=== PATIENT | male | born 1960 | race African-American/Black ===

== ENCOUNTER 2019-11-12 12:58 | Inpatient (IN) | payer OTHER ==
[~2019-11-12] VITALS: Ht 175.3 cm; Wt 90.7 kg
[2019-11-12] MEDS ORDERED: ACETAMINOPHEN 650MG SUPP PR STA (13:20)
[2019-11-12] MEDS ORDERED: LEVOFLOXACIN 500MG PREMIX 100 ML IV ONE (13:30)
[2019-11-12] MEDS ORDERED: MORPHINE SULFATE 4 MG/ML CPJ (NOT FOR IM USE) IV STA (13:32)
[2019-11-12] MEDS ORDERED: ONDANSETRON HCL 4MG/2ML INJ IV STA (13:32)
[2019-11-12 14:05] LABS: HEMATOCRIT. 30.5 % (42.0-52.0); HEMOGLOBIN. 10.1 g/dL (14.0-18.0); MEAN CORPUSCULAR HEMOGLOBIN 28.5 pg (28.0-32.0); MEAN CORPUSCULAR VOLUME 85.8 fL (80.0-94.0); MEAN PLATELET VOLUME 8.7 fl (7.4-10.4); PLATELET 305 x1000/uL (130-400); RED BLOOD CELL COUNT 3.55 mill/uL (4.7-6.1); RED CELL DISTRIBUTION WIDTH 14.7 % (11.6-14.6)
[2019-11-12 14:13] LABS: CHLORIDE 108 mEq/L (98-107)
[2019-11-12 14:20] LABS: CREATINE KINASE 73 IU/L (39-308)
[2019-11-12 14:22] LABS: D-DIMER 3.1 mg/L FEU (<0.50); INR 1.2
[2019-11-12 14:30] LABS: PLATELET ESTIMATE NORMAL
[2019-11-12 14:34] LABS: CLARITY URINE CLEAR (CLEAR); COLOR URINE YELLOW (YELLOW); KETONES URINE NEGATIVE (NEGATIVE); LEUKOCYTE ESTERASE URINE NEGATIVE (NEGATIVE); NITRITE URINE NEGATIVE (NEGATIVE); OCCULT BLOOD URINE NEGATIVE (NEGATIVE); PROTEIN URINE NEGATIVE (NEGATIVE); SPECIFIC GRAVITY URINE 1.004 (1.005-1.030); UROBILINOGEN URINE 0.2 E.U./dL (0.2-1.0)
[2019-11-12] MEDS ORDERED: ACETAMINOPHEN 325MG TABLET PO PRN (16:30)
[2019-11-12] MEDS ORDERED: PIPERACILLIN/TAZ 3.375G PREMIX 50 ML IV NR (18:26)
[2019-11-12] MEDS: SODIUM CHLORIDE 0.9% 1,000 ML IV SCH (19:04)
[2019-11-13] MEDS ORDERED: PIPERACILLIN/TAZOBACTAM 3.375 G in DEXT 5% WATER 100 ML IV SCH ×2
[2019-11-13] MEDS: ONDANSETRON HCL 4MG/2ML INJ IV PRN (01:29)
[2019-11-13] MEDS: ENOXAPARIN 100MG/ML SYR SUBCUT SCH ×2 (01:29→16:00)
[2019-11-13 02:18] VITALS: BP 174/106
[2019-11-13 04:00] VITALS: BP 152/96
[2019-11-13] MEDS: PIPERACILLIN/TAZOBACTAM 2.25 G in DEXTROSE 5% WATER 50 ML IV SCH ×4 (04:01→22:24)
[2019-11-13] MEDS: HYDROCODONE/ACETAMINOPHEN 10/325MG TABLET PO PRN ×2 (04:02→08:50)
[2019-11-13 07:24] LABS: HEMATOCRIT. 32.6 % (42.0-52.0); HEMOGLOBIN. 10.8 g/dL (14.0-18.0); MEAN CORPUSCULAR HEMOGLOBIN 29.1 pg (28.0-32.0); MEAN CORPUSCULAR VOLUME 88.2 fL (80.0-94.0); MEAN PLATELET VOLUME 8.6 fl (7.4-10.4); PLATELET 286 x1000/uL (130-400); RED CELL DISTRIBUTION WIDTH 14.6 % (11.6-14.6)
[2019-11-13 08:30] VITALS: BP 158/86
[2019-11-13] MEDS: BICALUTAMIDE 50 MG TABLET PO SCH (08:38)
[2019-11-13] MEDS: TAMSULOSIN HCL 0.4MG SR CAPSULE PO SCH (08:39)
[2019-11-13 11:12] LABS: BG BASE EXCESS -5.7 mmol/L (-2.0-2.0); BG CARBOXYHEMOGLOBIN 0.3 % (0.5-1.5); BG DEOXYHEMOGLOBIN 3.4 % (0.0-5.0); BG FRACTION INSPIRED OXYGEN 21; BG HCO3 ACT 18.5 mmol/L (22.0-26.0); BG OXYGEN SATURATION 96.6 % (92.0-98.5); BG OXYHEMOGLOBIN 96.3 % (94.0-97.0); BG PCO2 32.3 mmHg (35.0-45.0); BG PH 7.377 (7.350-7.450); BG PO2 88.4 mmHg (75.0-100.0); BG SAMPLE SITE RIGHT RADIAL; BG TOTAL HEMOGLOBIN 11.2 g/dL (12.0-18.0); BG VENT MODE ROOM AIR
[2019-11-13] MEDS: AMLODIPINE 5MG TABLET PO SCH ×2 (11:57→22:24)
[2019-11-13] MEDS: CITRIC ACID/SODIUM CITRATE SOLN 30ML UDC PO SCH ×2 (11:57→17:57)
[2019-11-13 12:00] VITALS: BP 123/75
[2019-11-13 15:56] LABS: PLATELET ESTIMATE NORMAL
[2019-11-13 16:15] VITALS: BP 122/66
[2019-11-13] MEDS: SODIUM CHLORIDE 0.9% 1,000 ML IV SCH (17:58)
[2019-11-13 18:50] LABS: SODIUM URINE RANDOM 48 mEq/L
[2019-11-13 20:00] VITALS: BP 121/67
[2019-11-14] VITALS (18 sets, daily range): BP systolic 111–192; BP diastolic 68–106
[2019-11-14] MEDS: HYDROCODONE/ACETAMINOPHEN 10/325MG TABLET PO PRN ×3 (00:30→19:06)
[2019-11-14] MEDS: PIPERACILLIN/TAZOBACTAM 2.25 G in DEXTROSE 5% WATER 50 ML IV SCH ×4 (03:28→21:03)
[2019-11-14] MEDS: SODIUM CHLORIDE 0.9% 1,000 ML IV SCH (08:31)
[2019-11-14] MEDS: CITRIC ACID/SODIUM CITRATE SOLN 30ML UDC PO SCH ×2 (09:00→16:07)
[2019-11-14] MEDS ORDERED: FENTANYL CITRATE/PF 50MCG/ML 2ML VIAL ONE (10:44)
[2019-11-14] MEDS ORDERED: FENTANYL CITRATE/PF 50MCG/ML 2ML VIAL IV NR (10:44)
[2019-11-14] MEDS ORDERED: LIDOCAINE HCL 1% 20ML VIAL (Pyxis) INJ ONE (10:47)
[2019-11-14] MEDS ORDERED: SODIUM BICARBONATE 4% (2.4MEQ) 5ML VIAL IV ONE (10:47)
[2019-11-14] MEDS ORDERED: IOHEXOL-300 50 ML BOTTLE IV ONE (11:19)
[2019-11-14 11:26] LABS: HEMATOCRIT. 31.5 % (42.0-52.0); HEMOGLOBIN. 10.5 g/dL (14.0-18.0); MEAN CORPUSCULAR HEMOGLOBIN 28.5 pg (28.0-32.0); MEAN CORPUSCULAR VOLUME 85.3 fL (80.0-94.0); MEAN PLATELET VOLUME 8.6 fl (7.4-10.4); PLATELET 329 x1000/uL (130-400); RED BLOOD CELL COUNT 3.69 mill/uL (4.7-6.1); RED CELL DISTRIBUTION WIDTH 14.6 % (11.6-14.6)
[2019-11-14] MEDS ORDERED: MIDAZOLAM HCL 2 MG/2 ML VIAL ONE (11:34)
[2019-11-14 12:36] LABS: PLATELET ESTIMATE NORMAL
[2019-11-14 12:42] LABS: PROSTRATE SPECIFIC AG TOTAL 552.38 ng/mL (0.0-4.0)
[2019-11-14] MEDS: TAMSULOSIN HCL 0.4MG SR CAPSULE PO SCH (13:00)
[2019-11-14] MEDS: AMLODIPINE 5MG TABLET PO SCH ×2 (13:00→21:03)
[2019-11-14] MEDS: ONDANSETRON HCL 4MG/2ML INJ IV PRN (13:00)
[2019-11-14] MEDS: BICALUTAMIDE 50 MG TABLET PO SCH (13:01)
[2019-11-14] MEDS ORDERED: HYDRALAZINE HCL 50MG TABLET PO SCH (14:15)
[2019-11-14] MEDS ORDERED: MORPHINE SULFATE 4 MG/ML CPJ (NOT FOR IM USE) IV PRN (16:00)
[2019-11-14] MEDS ORDERED: LACTULOSE 20G/30ML UDC PO PRN (16:00)
[2019-11-14] MEDS: HYDROMORPHONE HCL/PF 2MG/ML CPJ IV PRN ×2 (17:30→21:37)
[2019-11-14] MEDS: HYDRALAZINE HCL 50MG TABLET PO SCH (21:03)
[2019-11-15] VITALS: BP 155/85
[2019-11-15] MEDS: HYDROCODONE/ACETAMINOPHEN 10/325MG TABLET PO PRN ×2 (00:31→06:34)
[2019-11-15] MEDS: PIPERACILLIN/TAZOBACTAM 2.25 G in DEXTROSE 5% WATER 50 ML IV SCH ×4 (03:07→22:51)
[2019-11-15] MEDS: HYDROMORPHONE HCL/PF 2MG/ML CPJ IV PRN ×2 (03:19→09:36)
[2019-11-15 04:00] VITALS: BP 116/69
[2019-11-15] MEDS: SODIUM CHLORIDE 0.9% 1,000 ML IV SCH (06:34)
[2019-11-15 06:41] LABS: HEMATOCRIT. 34.3 % (42.0-52.0); HEMOGLOBIN. 11.2 g/dL (14.0-18.0); MEAN CORPUSCULAR HEMOGLOBIN 27.9 pg (28.0-32.0); MEAN CORPUSCULAR VOLUME 85.4 fL (80.0-94.0); MEAN PLATELET VOLUME 8.4 fl (7.4-10.4); PLATELET 375 x1000/uL (130-400); RED BLOOD CELL COUNT 4.02 mill/uL (4.7-6.1); RED CELL DISTRIBUTION WIDTH 14.6 % (11.6-14.6)
[2019-11-15 07:00] LABS: PHOSPHORUS 3.3 mg/dL (2.5-4.9)
[2019-11-15 08:00] VITALS: BP 122/81
[2019-11-15 08:58] LABS: NUCLEATED RED BLOOD CELLS 1 /100 WBC; PLATELET ESTIMATE NORMAL
[2019-11-15] MEDS: HYDRALAZINE HCL 50MG TABLET PO SCH ×2 (09:00→22:53)
[2019-11-15] MEDS: AMLODIPINE 5MG TABLET PO SCH ×2 (09:00→22:51)
[2019-11-15] MEDS: BICALUTAMIDE 50 MG TABLET PO SCH (09:00)
[2019-11-15] MEDS: TAMSULOSIN HCL 0.4MG SR CAPSULE PO SCH (09:00)
[2019-11-15] MEDS: CITRIC ACID/SODIUM CITRATE SOLN 30ML UDC PO SCH ×2 (09:00→16:21)
[2019-11-15 12:36] VITALS: BP 124/85
[2019-11-15 13:25] LABS: COVID-19 PCR RNA NOT DETECTED
[2019-11-15 13:26] LABS: COVID-19 PCR RNA NOT DETECTED
[2019-11-15] MEDS: ENOXAPARIN 100MG/ML SYR SUBCUT SCH ×2 (16:21→16:29)
[2019-11-15 16:24] VITALS: BP 131/87
[2019-11-15] MEDS: ONDANSETRON HCL 4MG/2ML INJ IV PRN ×2 (17:45→22:58)
[2019-11-15 20:00] VITALS: BP 120/73
[2019-11-15] MEDS: MORPHINE SULFATE 15MG TABLET SR PO SCH (22:52)
[2019-11-16] VITALS: BP 135/87
[2019-11-16] MEDS: PIPERACILLIN/TAZOBACTAM 2.25 G in DEXTROSE 5% WATER 50 ML IV SCH ×4 (02:33→21:41)
[2019-11-16] MEDS: HYDROMORPHONE HCL/PF 2MG/ML CPJ IV PRN ×2 (02:34→16:03)
[2019-11-16] MEDS: SODIUM CHLORIDE 0.9% 1,000 ML IV SCH (02:35)
[2019-11-16 04:00] VITALS: BP 126/72
[2019-11-16 08:00] VITALS: BP 134/87
[2019-11-16] MEDS: ENOXAPARIN 30MG/0.3ML SYR SUBCUT SCH ×2 (09:00→10:03)
[2019-11-16] MEDS: HYDRALAZINE HCL 50MG TABLET PO SCH ×2 (10:02→21:45)
[2019-11-16] MEDS: CITRIC ACID/SODIUM CITRATE SOLN 30ML UDC PO SCH ×2 (10:02→17:37)
[2019-11-16] MEDS: MORPHINE SULFATE 15MG TABLET SR PO SCH ×2 (10:02→21:44)
[2019-11-16] MEDS: TAMSULOSIN HCL 0.4MG SR CAPSULE PO SCH (10:02)
[2019-11-16] MEDS: AMLODIPINE 5MG TABLET PO SCH ×2 (10:02→21:45)
[2019-11-16 11:00] LABS: BASOPHILS % 0.3 % (0.0-2.0); HEMATOCRIT. 33.6 % (42.0-52.0); HEMOGLOBIN. 11.1 g/dL (14.0-18.0); LYMPHOCYTES % 9.5 % (20.0-50.0); MEAN CORPUSCULAR VOLUME 84.9 fL (80.0-94.0); MEAN PLATELET VOLUME 8.7 fl (7.4-10.4); MONOCYTES % 9.9 % (2.0-8.0); NEUTROPHILS % 80.3 % (40.0-76.0); PLATELET 419 x1000/uL (130-400); RED BLOOD CELL COUNT 3.96 mill/uL (4.7-6.1)
[2019-11-16 11:25] LABS: PHOSPHORUS 2.7 mg/dL (2.5-4.9)
[2019-11-16 12:00] VITALS: BP 146/68
[2019-11-16] MEDS ORDERED: CHLORPROMAZINE HCL 25 MG TABLET PO NR (14:45)
[2019-11-16] MEDS: ONDANSETRON HCL 4MG/2ML INJ IV PRN (15:47)
[2019-11-16 16:00] VITALS: BP 112/66
[2019-11-16 20:00] VITALS: BP 155/83
[2019-11-17] VITALS: BP 148/82
[2019-11-17 04:00] VITALS: BP 111/53
[2019-11-17] MEDS: SODIUM CHLORIDE 0.9% 1,000 ML IV SCH ×2 (05:32→18:55)
[2019-11-17] MEDS: PIPERACILLIN/TAZOBACTAM 2.25 G in DEXTROSE 5% WATER 50 ML IV SCH ×4 (05:32→20:57)
[2019-11-17 06:22] LABS: BASOPHILS % 0.7 % (0.0-2.0); EOSINOPHILS % 0.4 % (0.0-5.0); HEMATOCRIT. 28.7 % (42.0-52.0); HEMOGLOBIN. 9.7 g/dL (14.0-18.0); LYMPHOCYTES % 11.7 % (20.0-50.0); MEAN CORPUSCULAR HEMOGLOBIN 28.6 pg (28.0-32.0); MEAN CORPUSCULAR VOLUME 84.6 fL (80.0-94.0); MEAN PLATELET VOLUME 8.7 fl (7.4-10.4); MONOCYTES % 14.1 % (2.0-8.0); NEUTROPHILS % 73.1 % (40.0-76.0); PLATELET 351 x1000/uL (130-400); RED BLOOD CELL COUNT 3.39 mill/uL (4.7-6.1); RED CELL DISTRIBUTION WIDTH 15.3 % (11.6-14.6)
[2019-11-17 08:00] VITALS: BP 123/71
[2019-11-17] MEDS: TAMSULOSIN HCL 0.4MG SR CAPSULE PO SCH (09:29)
[2019-11-17] MEDS: HYDRALAZINE HCL 50MG TABLET PO SCH ×2 (09:29→20:57)
[2019-11-17] MEDS: ENOXAPARIN 30MG/0.3ML SYR SUBCUT SCH (09:30)
[2019-11-17] MEDS: MORPHINE SULFATE 15MG TABLET SR PO SCH ×2 (09:30→20:58)
[2019-11-17] MEDS: AMLODIPINE 5MG TABLET PO SCH ×2 (09:31→20:58)
[2019-11-17] MEDS: CITRIC ACID/SODIUM CITRATE SOLN 30ML UDC PO SCH ×2 (09:32→17:35)
[2019-11-17 12:00] VITALS: BP 121/81
[2019-11-17] MEDS: BICALUTAMIDE 50 MG TABLET PO SCH (12:19)
[2019-11-17] MEDS: CHLORPROMAZINE HCL 25 MG TABLET PO PRN ×2 (15:12→21:39)
[2019-11-17] MEDS: HYDROMORPHONE HCL/PF 2MG/ML CPJ IV PRN (15:12)
[2019-11-17 16:00] VITALS: BP 115/73
[2019-11-17 20:00] VITALS: BP 130/76
[2019-11-18] VITALS: BP 127/66
[2019-11-18 04:00] VITALS: BP 126/67
[2019-11-18] MEDS: PIPERACILLIN/TAZOBACTAM 2.25 G in DEXTROSE 5% WATER 50 ML IV SCH (04:10)
[2019-11-18] MEDS: SODIUM CHLORIDE 0.9% 1,000 ML IV SCH (04:12)
[2019-11-18 08:00] VITALS: BP 113/65
[2019-11-18 08:37] LABS: HEMATOCRIT. 26.9 % (42.0-52.0); MEAN CORPUSCULAR HEMOGLOBIN 28.5 pg (28.0-32.0); MEAN CORPUSCULAR VOLUME 85.1 fL (80.0-94.0); MEAN PLATELET VOLUME 8.4 fl (7.4-10.4); PLATELET 366 x1000/uL (130-400); RED BLOOD CELL COUNT 3.16 mill/uL (4.7-6.1); RED CELL DISTRIBUTION WIDTH 15.6 % (11.6-14.6)
[2019-11-18] MEDS ORDERED: LIDOCAINE HCL/PF 1% 10 MG/ML 5ML VIAL ONE (08:40)
[2019-11-18] MEDS ORDERED: SUCCINYLCHOLINE CHLORIDE 200MG/10ML IV ONE (08:40)
[2019-11-18] MEDS ORDERED: CEFAZOLIN SODIUM 1000MG/VIAL ONE (08:40)
[2019-11-18] MEDS ORDERED: SODIUM CHLORIDE 0.9% 10ML VIAL ONE (08:41)
[2019-11-18] MEDS ORDERED: MIDAZOLAM HCL 2 MG/2 ML VIAL ONE (08:41)
[2019-11-18] MEDS ORDERED: FENTANYL CITRATE/PF 50MCG/ML 2ML VIAL ONE (08:41)
[2019-11-18] MEDS ORDERED: PROPOFOL 200MG/20ML VIAL IV ONE (08:41)
[2019-11-18] MEDS ORDERED: LIDOCAINE HCL 1% 20ML VIAL (Pyxis) INJ ONE (08:43)
[2019-11-18] MEDS ORDERED: SODIUM BICARBONATE 4% (2.4MEQ) 5ML VIAL IV ONE (08:43)
[2019-11-18] MEDS ORDERED: IOHEXOL-300 50 ML BOTTLE IV ONE (08:43)
[2019-11-18 08:54] LABS: PHOSPHORUS 3.8 mg/dL (2.5-4.9)
[2019-11-18] MEDS ORDERED: IOHEXOL-300 100 ML BOTTLE ONE (08:54)
[2019-11-18] MEDS: CITRIC ACID/SODIUM CITRATE SOLN 30ML UDC PO SCH (09:00)
[2019-11-18] MEDS: HYDRALAZINE HCL 50MG TABLET PO SCH (09:49)
[2019-11-18] MEDS: MORPHINE SULFATE 15MG TABLET SR PO SCH (09:49)
[2019-11-18] MEDS: ENOXAPARIN 30MG/0.3ML SYR SUBCUT SCH (09:50)
[2019-11-18] MEDS: TAMSULOSIN HCL 0.4MG SR CAPSULE PO SCH (09:50)
[2019-11-18] MEDS: BICALUTAMIDE 50 MG TABLET PO SCH (09:50)
[2019-11-18] MEDS: AMLODIPINE 5MG TABLET PO SCH (09:50)
[2019-11-18] MEDS ORDERED: ROCURONIUM BROMIDE 10MG/ML VIAL 5ML IV ONE (10:06)
[2019-11-18] MEDS ORDERED: GLYCOPYRROLATE 0.2 MG/ML 2ML VIAL ONE (10:06)
[2019-11-18] MEDS ORDERED: NEOSTIGMINE METHYLSULFATE 1MG/ML 10 ML VIAL ONE (10:06)
[2019-11-18] MEDS ORDERED: ONDANSETRON HCL 4MG/2ML INJ ONE (10:09)
[2019-11-18] MEDS ORDERED: METOCLOPRAMIDE HCL 10MG/2ML VIAL ONE (10:09)
[2019-11-18] MEDS ORDERED: TAMS-11 PO (10:55)
[2019-11-18] MEDS ORDERED: HYDR-4135 PO (10:55)
[2019-11-18] MEDS ORDERED: HYDR-4009 MT (10:55)
[2019-11-18] MEDS ORDERED: AMLO5TAB88 PO (10:55)
[2019-11-18 12:00] VITALS: BP 122/65
[2019-11-18 13:02] VITALS: BP 122/65
[2019-11-18 17:15] LABS: PLATELET ESTIMATE NORMAL
== END 2019-11-18 14:32 | disposition home or self-care (01) | DRG 720 ==
LOC: ER 12:58 → EDBEDREQTM 14:49 → EDBEDREQ 14:49 → ENRESERV 22:29 → 7WST 11-13 00:26 → 6EST 11-16 10:38
PROVIDERS: ADMIT Internal Medicine; ATTEND Internal Medicine
PROC: 0TJ53ZZ Inspection of Kidney, Percutaneous Approach (ICD-10-PCS; principal; 2019-11-14)
DX: A41.9 Sepsis, unspecified organism (principal); N17.9 Acute kidney failure, unspecified; E87.8 Other disorders of electrolyte and fluid balance, not elsewhere classified; E44.0 Moderate protein-calorie malnutrition; E87.1 Hypo-osmolality and hyponatremia; C61 Malignant neoplasm of prostate; D64.9 Anemia, unspecified; N13.8 Other obstructive and reflux uropathy; N13.6 Pyonephrosis; D72.810 Lymphocytopenia; N40.0 Benign prostatic hyperplasia without lower urinary tract symptoms; Z16.12 Extended spectrum beta lactamase (ESBL) resistance; Z20.828 Contact with and (suspected) exposure to other viral communicable diseases; I12.9 Hypertensive chronic kidney disease with stage 1 through stage 4 chronic kidney disease, or unspecified chronic kidney disease; N18.9 Chronic kidney disease, unspecified; Z82.49 Family history of ischemic heart disease and other diseases of the circulatory system; Z85.46 Personal history of malignant neoplasm of prostate
CPT/HCPCS: 36415; 36600; 50432; 71045; 74176; 80048; 80053; 81003; 82375; 82533; 82550; 82728; 82805; 83605; 83615; 83735; 83880; 83935; 84100; 84145; 84153; 84300; 84443; 84484; 85025; 85379; 85384; 86140; 87804; 93005; 93970; 96365; 99152; 99153; 99291; J0330; J0690; J1170; J1650; J1956; J2250; J2270; J2405; J2543; J2704; J2710; J2765; J3010; J3490; J7060; Q0161; Q9967; U0003; G0103; G0500